=== PATIENT | male | born 1990 | race Caucasian/White ===

== ENCOUNTER 2024-06-14 17:41 | Emergency (ER) | payer MEDICAID, SELFPAY ==
[2024-06-14 18:00] VITALS: BP 131/80; PULSE 90; RESP 14; TEMP 36.9; O2SAT 99; BMI 21.4
[2024-06-14 18:05] VITALS: BP 131/80; PULSE 90; RESP 14; O2SAT 99
--- NOTE | 2024-06-14 18:06 | XRR_ITS ---
PROCEDURE INFORMATION: Exam: XR Left Wrist Exam date and time: 06/14/2024 6:14 PM Age: 33 years old Clinical indication: Pain; Wrist; Left; Additional info: PT C/O posterior left wrist pain, states he might have pulled a muscle at work this week . TECHNIQUE: Imaging protocol: Radiologic exam of the left wrist. Views: 1 or 2 views. COMPARISON: No relevant prior studies available. FINDINGS: Bones/joints: Normal. Soft tissues: Normal. XR/XR wrist LT 2V [id number] IMPRESSION: No acute findings.
--- NOTE | 2024-06-14 18:34 | W.ED.EXTPRO ---
HPI - Extremity Problem General: Chief complaint: Extremity Injury, Upper Stated complaint: L wrist pain and swelling Time Seen by Provider: 06/14/24 18:05 Source: patient Mode of arrival: ambulatory Limitations: no limitations History of Present Illness: Patient is a 33-year-old male who presents the emergency department complaining of left wrist pain for the past week. Notes swelling to his wrist, there is no inciting event. 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 States that it radiates up the forearm towards his elbow, it is worse with range of motion, specifically pronation and supination. No distal neurovascular symptoms reported. No coolness to the extremity or skin color changes. Has tried ibuprofen and Tylenol, as well as ice and heat but states this has rarely helped. Vitals normal. MD Complaint: extremity pain and joint pain Pain Consistency: constant Location: left and upper extremity Quality: stabbing and aching Radiation: proximal Exacerbating factors: range of motion Associated symptoms: Deny chest pain, fever(s) or rash Context: other (Thinks he overused it at work) Related Data Previous Rx's ?Medication ?Instructions ?Recorded cyclobenzaprine 5 mg tablet 5 mg PO Q8H #10 tabs 06/14/24 Allergies Allergy/AdvReac Type Severity Reaction Status Date / Time amoxicillin Allergy ALGY-Difficulty Verified 06/14/24 18:03 Breathing lavender (Lavandula Allergy ALGY-Difficulty Verified 06/14/24 18:03 angustifolia) Breathing Penicillins Allergy ALGY-Difficulty Verified 06/14/24 18:03 Breathing Review of Systems General: Reports: 10 or more systems reviewed and unremarkable except in HPI and below Const: Denies: fever(s) or chills Card: Denies: chest pain Resp: Denies: dyspnea or productive cough GI: Denies: abdominal pain, nausea, vomiting or diarrhea : Denies: flank pain Musc: Reports: extremity pain, joint pain and joint swelling; Denies: neck pain, back pain, extremity swelling, joint redness, joint warmth, limited range of motion or muscle weakness Skin/Breast: Denies: rash Neuro: Denies: headache(s), numbness in extremities or weakness in extremities Physical Exam Const: COMMON NORMALS: no acute distress, patient oriented x3, no limitations, healthy appearing, alert and well nourished HENMT: COMMON NORMALS: normocephalic and atraumatic HEAD & SCALP: normocephalic and atraumatic Neck/C-Spine: COMMON NORMALS: full ROM, supple and no meningeal signs Resp: COMMON NORMALS: normal respiratory effort, No use of accessory muscles and clear to auscultation bilaterally AUSCULTATION: clear to auscultation bilaterally Cardio: COMMON NORMALS: regular rate and regular rhythm RATE: regular rate RHYTHM: regular rhythm Extremity: COMMON NORMALS: normal to inspection, full ROM, capillary refill normal, no joint enlargement and no clubbing, cyanosis or edema NARRATIVE EXTREMITY EXAM: No swelling of the left wrist. Tender to palpation at dorsum of left wrist, range of motion with pronation and supination. Full range of motion at the wrist with flexion and extension without pain. Normal elbow examination. No coolness to the left upper extremity or paralysis. No skin color changes. Specifically no tenderness at the lateral epicondyle of the elbow and negative testing for carpal tunnel. Neuro: COMMON NORMALS: patient oriented x3, moves all extremities, no focal motor deficits and no sensory deficits noted SENSORIUM/ORIENTATION: Yes alert MENINGEAL SIGNS: Yes no meningeal signs Skin: COMMON NORMALS: no rashes or lesions noted GENERAL SKIN EXAM: no rashes or lesions noted Course Vital Signs: Vital signs: Vital Signs Temperature 98.4 F 06/14/24 18:00 Pulse Rate 90 06/14/24 18:05 Respiratory Rate 14 06/14/24 18:05 Blood Pressure 131/80 06/14/24 18:05 Pulse Oximetry 99 06/14/24 18:05 Oxygen Delivery Me thod Room Air 06/14/24 18:00 MDM - Extremity (Nontraumatic) Medical Decision Making Patient presented with atraumatic left wrist pain, thinks he overuse at work. X-ray was normal. No signs of compartment syndrome on exam, no swelling and no other signs of trauma. Will try muscle relaxers and have him keep treating conservatively, encouraging him to follow-up with regular doctor for an MRI if his pain persists. He is comfortable with this plan, discharge at this time. Lab Data Radiology Impressions Wrist X-Ray 06/14/24 18:06 IMPRESSION: No acute findings. All radiology interpretation(s) finalized by discharge Discharge Plan Discharge Patient Disposition: Home Clinical Impression: Left wrist sprain Qualifiers: Encounter type: initial encounter Qualified Code(s): S63.502A - Unspecified sprain of left wrist, initial encounter Condition: Stable Prescriptions: New cyclobenzaprine 5 mg tablet 5 mg PO Q8H Qty: 10 0RF Discharge Orders: Discharge ED (Routine); Ordered 06/14/24 Ordered By: Jonathan Singer Referrals: Shelly Arreola, [employer] [Primary Care Provider] - Patient Instructions: Wrist Sprain (ED) Activity Restrictions/Additional Instructions: Follow-up with primary care for further evaluation, specifically. Pain is not improving he may require MRI. Muscle relaxers. Continue ibuprofen and Tylenol. Use heat. Range of motion exercises as tolerated. See attached patient instructions for further education. Print Language: Swedish Coding Level of Care Code ED [employer] Supervisor for Marlena Roland
[2024-06-14 19:30] VITALS: BP 113/72; PULSE 65; O2SAT 97
== END 2024-06-14 19:31 | disposition home or self-care (01) ==
PROVIDERS: Emergency Provider Physician Assistant; PCP Nurse Practitioner Family
DX: S63.502A Unspecified sprain of left wrist, initial encounter (principal); X50.0XXA Overexertion from strenuous movement or load, initial encounter
CPT/HCPCS: 73100; 99283